=== PATIENT | female | born 1950 | race Caucasian/White ===

== ENCOUNTER 2017-08-26 16:00 | Outpatient (CLI) | payer MEDICARE | END 2017-08-26 16:01 | disposition home or self-care (01) | LOC: BICRAD 16:00 | PROVIDERS: ATTEND Orthopaedic Surgery Hand Surgery | DX: M79.642 Pain in left hand (principal); Z98.890 Other specified postprocedural states ==

== ENCOUNTER 2017-12-28 16:27 | Outpatient (CLI) | payer MEDICARE ==
--- NOTE | 2017-12-29 08:44 | MRI ---
MRI LEFT WRIST WITHOUT CONTRAST: HISTORY: Pain. COMPARISON: Intraoperative radiograph 05/18/17. FINDINGS: There is a prior trapeziectomy with ligament reconstruction and tendon interposition. Evaluation of the proximal carpal row is severely limited due to distortion from the distal radius hardware. There is granulation tissue through the tendon placement through the 1st metacarpal base. Approximat jc 5 mm subsidence of the thumb metacarpal base. The osteotomy site of the thumb metacarpal measures almost 6 mm in size without evidence of cystic di latation. The flexor carpal radialis is seen extending through the osteotomy site. Extensive artifact is seen through the procedure site. There is edema within the trapezoid. IMPRESSION: 1. Trapeziectomy and LRTI changes with adequate reduction of the thumb metacarpal base with approxim ately 5 mm subsidence. 2. Edema within the trapezoid may be stress-related. Edema from wire fixation during surgery would h ave expected to resolve by now. POS: [facility]
== END 2017-12-28 16:28 | disposition home or self-care (01) ==
LOC: MRI 16:27
PROVIDERS: ATTEND Orthopaedic Surgery Hand Surgery
DX: M79.642 Pain in left hand (principal); Z98.890 Other specified postprocedural states

== ENCOUNTER 2018-07-07 16:09 | Outpatient (CLI) | payer MEDICARE | END 2018-07-07 16:10 | disposition home or self-care (01) | LOC: BICMAMMO 16:09 | PROVIDERS: ATTEND Family Medicine | DX: Z12.31 Encounter for screening mammogram for malignant neoplasm of breast (principal); L90.5 Scar conditions and fibrosis of skin; Z80.3 Family history of malignant neoplasm of breast | CPT/HCPCS: 77063; 77067 ==

== ENCOUNTER 2020-08-23 14:21 | Outpatient (CLI) | payer MEDICARE ==
--- NOTE | 2020-08-23 14:50 | MMO ---
Bilateral MAMMO Bilat Screen [facility]. CLINICAL HISTORY: Patient is 69 years old and is seen for screening. The patient has the following family history of breast cancer: mother and sister, at age 42. The patient has no personal history of cancer. The patient has a history of right Excisional Biopsy - benign. VIEWS: The views performed were: bilateral craniocaudal with tomosynthesis and bilateral mediolateral oblique with tomosynthesis. FILMS COMPARED: The present examination has been compared to prior imaging studies performed at [facility] on 05/01/2015, 07/04/2016 and 07/07/2018, and at [facility] on 10/07/2013. This study has been interpreted with the assistance of computer-aided detection. MAMMOGRAM FINDINGS: There are scattered fibroglandular densities. There is a stable nodule seen in the left breast. There are no suspicious masses, suspicious calcifications, or new areas of architectural distortion. IMPRESSION: THERE IS NO MAMMOGRAPHIC EVIDENCE OF MALIGNANCY. A ROUTINE FOLLOW-UP MAMMOGRAM IN 1 YEAR IS RECOMMENDED. THE RESULTS OF THIS EXAM WERE SENT TO THE PATIENT. ACR BI-RADS Category 2 - Benign finding MAMMOGRAPHY NOTE: 1. A negative mammogram report should not delay a biopsy if a dominant of clinically suspicious mass is present. 2. Approximately 10% to 15% of breast cancers are not detected by mammography. 3. Adenosis and dense breasts may obscure an underlying neoplasm. Reported by: EVY ESTES MD Electonically Signed: [id number]
== END 2020-08-23 14:22 | disposition home or self-care (01) ==
LOC: BICMAMMO 14:21
PROVIDERS: ATTEND Family Medicine
DX: Z12.31 Encounter for screening mammogram for malignant neoplasm of breast (principal); Z80.3 Family history of malignant neoplasm of breast; Z91.89 Other specified personal risk factors, not elsewhere classified
CPT/HCPCS: 77063; 77067

== ENCOUNTER 2021-08-28 14:03 | Outpatient (CLI) | payer MEDICARE | END 2021-08-28 14:04 | disposition home or self-care (01) | LOC: BICMAMMO 14:03 | PROVIDERS: ATTEND Family Medicine | DX: Z12.31 Encounter for screening mammogram for malignant neoplasm of breast (principal); Z80.3 Family history of malignant neoplasm of breast; Z91.89 Other specified personal risk factors, not elsewhere classified | CPT/HCPCS: 77063; 77067 ==

== ENCOUNTER 2022-11-12 13:24 | Outpatient (CLI) | payer MEDICARE | END 2022-11-12 13:25 | disposition home or self-care (01) | LOC: BICMAMMO 13:24 | PROVIDERS: ATTEND Family Medicine | DX: Z12.31 Encounter for screening mammogram for malignant neoplasm of breast (principal); Z80.3 Family history of malignant neoplasm of breast; Z91.89 Other specified personal risk factors, not elsewhere classified | CPT/HCPCS: 77063; 77067 ==

== ENCOUNTER 2022-11-17 13:18 | Outpatient (CLI) | payer MEDICARE ==
[~2022-11-17 13:18] MED LIST: Iopamidol-370 76% 500 ML 1 ML ONE
== END 2022-11-17 13:19 | disposition home or self-care (01) ==
LOC: BICCT 13:18
PROVIDERS: ATTEND Physician Assistant Medical
DX: R10.32 Left lower quadrant pain (principal); K62.5 Hemorrhage of anus and rectum; R19.7 Diarrhea, unspecified; K57.30 Diverticulosis of large intestine without perforation or abscess without bleeding; K63.89 Other specified diseases of intestine
CPT/HCPCS: 74177

== ENCOUNTER 2023-03-20 12:50 | Outpatient (CLI) | payer MEDICARE | END 2023-03-20 12:51 | disposition home or self-care (01) | LOC: BICMRI 12:50 | PROVIDERS: ATTEND Orthopaedic Surgery Hand Surgery | DX: M75.121 Complete rotator cuff tear or rupture of right shoulder, not specified as traumatic (principal); S42.121A Displaced fracture of acromial process, right shoulder, initial encounter for closed fracture; S43.431A Superior glenoid labrum lesion of right shoulder, initial encounter ==